=== PATIENT | male | born 1965 | race Caucasian/White ===

== ENCOUNTER 2018-01-26 11:55 | Emergency (ER) | payer SELFPAY ==
[2018-01-26] MEDS ORDERED: Acetaminophen 500 MG TAB ONE (12:37)
[2018-01-26] MEDS ORDERED: Ondansetron HCl/PF 4 MG/2 ML Vial ONE (12:37)
[2018-01-26] MEDS ORDERED: Pantoprazole 40 MG VIAL ONE (12:37)
[2018-01-26 12:39] LABS: Hemoglobin 13.3 g/dL (14.0-18.0); Mean Corpuscular HGB CONC 34.9 g/dL (32.0-36.0); Mean Corpuscular Hemoglobin 30.9 pg (27.0-31.0); Mean Corpuscular Volume 88.5 fl (80.0-94.0); Mean Platelet Volume 6.9 fL (7.4-10.4); Platelet Count 153 thou/uL (130-400); RBC Distribution Width 12.3 % (11.5-14.5); Red Blood Cell (RBC) Count 4.31 mill/uL (4.70-6.10); White Blood Cell (WBC) Count 13.3 thou/uL (4.8-10.8)
[2018-01-26 12:58] LABS: CKMB 0.1 ng/mL (0-6.6); Troponin I Less than 0.010 ng/mL (< 0.028)
[2018-01-26 13:05] LABS: ALT (SGPT) 16 U/L (8-55); AST (SGOT) 14 U/L (5-34); Albumin 3.5 g/dL (3.5-5.0); Alkaline Phosphatase 75 U/L (40-150); Anion Gap 11 mmol/L (10-20); BUN (Urea Nitrogen) 14 mg/dL (8.4-25.7); Bilirubin, Total 0.8 mg/dL (0.2-1.2); CK (CPK) 32 U/L (30-200); Calc. Creatinine Clearance 0 mL/min (70-130); Calcium 8.2 mg/dL (7.8-10.44); Carbon Dioxide 22 mmol/L (22-29); Chloride 106 mmol/L (98-107); Estimated GFR-MDRD 62; Globulin 2.7 g/dL (2.4-3.5); Glucose 114 mg/dL (70-105); Lipase 18 U/L (8-78); Potassium 3.6 mmol/L (3.5-5.1); Protein, Total 6.2 g/dL (6.0-8.3); Sodium 135 mmol/L (136-145)
[2018-01-26 13:07] LABS: Band 25 % (5-11); Lymphocytes 11 % (21-51); MDiff Complete? YES; Monocytes 5 % (0-10); Neutrophil 59 % (42-75); RBC Morphology Normal
--- NOTE | 2018-01-26 13:20 | RAD ---
UPRIGHT PORTABLE CHEST 1 VIEW: Date: 01/26/18 HISTORY: 52-year-old male with history of chest pain, with nausea and vomiting since yesterday. FINDINGS: Monitor leads overlie the chest. Heart size within normal limits. Lungs are clear. IMPRESSION: No acute intrathoracic disease. POS: [facility]
== END 2018-01-26 15:29 | disposition home or self-care (01) ==
LOC: ERS 11:55
DX: K52.9 Noninfective gastroenteritis and colitis, unspecified (principal); Z79.899 Other long term (current) drug therapy
CPT/HCPCS: 36415; 71045; 80053; 82553; 83690; 84484; 85025; 87045; 87046; 87081; 87449; 87899; 93005; 96361; 96372; 96374; 96375; C9113; J2405